=== PATIENT | male | born 1955 | race Hispanic/Latino ===

== ENCOUNTER → 2019-08-10 | Outpatient (CLI) | payer MEDICARE ==
[~2019-08-10] MED LIST: ASPI-1197 PO; CARV25TA PO; GLIM4TAB36 PO; MAGN250T2 PO; METF-446 PO; PRAV20TA4 PO; SACU1TAB7 PO; [UNRECOGNIZED DRUG - OTHER] PO
== END | disposition home or self-care (01) ==
LOC: SHCH 07:45
PROVIDERS: ATTEND Internal Medicine Cardiovascular Disease
DX: I07.1 Rheumatic tricuspid insufficiency (principal); I25.5 Ischemic cardiomyopathy
CPT/HCPCS: 93306; 93356

== ENCOUNTER 2021-01-14 05:54 | Day surgery (SDC) | payer MEDICARE ==
[2021-01-09 10:10] VITALS: BP 113/65
[2021-01-09 10:21] LABS: BASOPHILS % (AUTO) 0.6 % (0.0-5.0); EOSINOPHILS % (AUTO) 3.2 % (0.0-8.0); HEMATOCRIT 37.9 % (42-54); LYMPHOCYTES % (AUTO) 23.7 % (21.0-51.0); MEAN CORPUSCULAR HEMOGLOBIN 32.5 pg (27.0-33.0); MEAN CORPUSCULAR HGB CONC 33.5 g/dL (32.0-36.0); MEAN CORPUSCULAR VOLUME 96.9 fL (79-99); MONOCYTES % (AUTO) 7.5 % (3.0-13.0); NEUTROPHILS % (AUTO) 64.7 % (40.0-77.0); PLATELET COUNT (AUTO) 103 K/uL (130-400); RED BLOOD CELL COUNT(AUTO) 3.91 MIL/uL (4.50-6.20); RED CELL DISTRIBUTION WIDTH 13.8 % (11.0-15.5); WHITE BLOOD COUNT (AUTO) 6.3 K/uL (4.8-10.8)
[2021-01-09 10:32] LABS: CREATININE 1.8 mg/dL (0.5-1.5); POTASSIUM 5.3 mmol/L (3.5-5.1)
[2021-01-09 10:35] LABS: PROTHROMBIN TIME 10.9 SEC (9.6-11.6)
[2021-01-14] VITALS (13 sets, daily range): BP systolic 83–119; BP diastolic 53–67
[~2021-01-14] VITALS: Ht 172.7 cm; Wt 67.2 kg
[~2021-01-14 05:54] MED LIST changes: +ASCO500C6 PO; +CREON12 PO; +DAPA10TA PO; +FOLI0.8T2 PO; +FOLI1CAP10 PO; +INSLAN SQ; -METF-446 PO; +SACU1TAB4 PO; -SACU1TAB7 PO; -[UNRECOGNIZED DRUG - OTHER] PO
[2021-01-14] MEDS ORDERED: 0.9%NACL 1000ML 1,000 ML IV ONE (06:14)
[2021-01-14] MEDS ORDERED: BUPIVACAINE/PF 0.25% 30ML VIAL IJ ONE (07:23)
[2021-01-14] MEDS ORDERED: CEFAZOLIN SODIUM 1 GM VIAL ONE (07:23)
[2021-01-14] MEDS ORDERED: MEPERIDINE-PF 25 MG/ML SYG ONE ×2 (07:24→07:39)
[2021-01-14] MEDS ORDERED: LIDOCAINE HCL 1% MDV 50ML VIAL ONE (07:24)
[2021-01-14] MEDS ORDERED: MIDAZOLAM HCL 1 MG/ML 2ML VIAL ONE ×2 (07:24→07:39)
[2021-01-14] MEDS ORDERED: THROMBIN-JMI 5000 UNIT/VIAL TP ONE (08:17)
[2021-01-14] MEDS ORDERED: DEXTROSE 50%-WATER 50 ML DISP.SYRIN IV PRN (09:00)
[2021-01-14] MEDS ORDERED: APAP-CODEINE 300/30MG TAB PO PRN ×2 (09:00)
[2021-01-14] MEDS ORDERED: INSULIN HUMULIN R 100 UNIT/ML 3ML SQ SCH (11:30)
[2021-01-14] MEDS ORDERED: CEFAZOLIN SODIUM 1 GM VIAL IVP SCH (15:00)
== END 2021-01-14 15:30 | disposition home or self-care (01) ==
LOC: DAH 05:54
PROVIDERS: ATTEND Internal Medicine Cardiovascular Disease
DX: Z45.02 Encounter for adjustment and management of automatic implantable cardiac defibrillator (principal); I42.8 Other cardiomyopathies; I50.42 Chronic combined systolic (congestive) and diastolic (congestive) heart failure; E11.9 Type 2 diabetes mellitus without complications; E78.5 Hyperlipidemia, unspecified; Z79.01 Long term (current) use of anticoagulants; Z79.82 Long term (current) use of aspirin; Z79.4 Long term (current) use of insulin; Z90.49 Acquired absence of other specified parts of digestive tract
CPT/HCPCS: 33264; 36415; 80048; 82948 ×3; 85025; 85610; 85730; A4215; A4216; A4221; A4222; A4223 ×3; A4606; A4663; C1882; J0690 ×2; J2175; J2250; J3490 ×3; J7030; 99156; 99157

== ENCOUNTER → 2023-07-14 | Outpatient (CLI) | payer OTHER, MEDICARE ==
[~2023-07-14] MED LIST changes: -ASCO500C6 PO; -MAGN250T2 PO; +MAGN250T35 PO
== END | disposition home or self-care (01) ==
LOC: SHCH 07:32
PROVIDERS: ATTEND Internal Medicine Cardiovascular Disease
DX: I51.7 Cardiomegaly (principal); I25.5 Ischemic cardiomyopathy; E11.9 Type 2 diabetes mellitus without complications; E78.5 Hyperlipidemia, unspecified
CPT/HCPCS: 93306

== ENCOUNTER → 2024-07-28 | Outpatient (CLI) | payer OTHER, MEDICARE ==
[2024-07-28 15:22] LABS: % IRON SATURATION 19.6 % (30-44)
== END | disposition home or self-care (01) ==
LOC: LAB 11:45
PROVIDERS: ATTEND Nurse Practitioner Acute Care
DX: I25.10 Atherosclerotic heart disease of native coronary artery without angina pectoris (principal); D64.9 Anemia, unspecified
CPT/HCPCS: 36415; 82728; 83540; 83550